=== PATIENT | male | born 1990 | race Two or more races ===

== ENCOUNTER 2018-11-20 17:50 | Emergency (ER) | payer MEDICAID ==
[~2018-11-20] VITALS: Ht 165.1 cm; Wt 77.1 kg
[2018-11-20 20:00] VITALS: BP 143/84
== END 2018-11-20 21:05 | disposition home or self-care (01) ==
LOC: ER 18:00
DX: L03.114 Cellulitis of left upper limb (principal); L03.113 Cellulitis of right upper limb; L03.011 Cellulitis of right finger
CPT/HCPCS: 73130

== ENCOUNTER 2019-03-26 16:07 | Emergency (ER) | payer MEDICAID ==
[~2019-03-26] VITALS: Ht 167.6 cm; Wt 72.6 kg
[2019-03-26 17:10] VITALS: BP 145/89
== END 2019-03-26 18:03 | disposition home or self-care (01) ==
LOC: ER 16:12
DX: T81.49XA Infection following a procedure, other surgical site, initial encounter (principal); L02.612 Cutaneous abscess of left foot